=== PATIENT | male | born 1995 | race Caucasian/White ===

== ENCOUNTER 2022-06-14 14:53 | Emergency (ER) | payer BC, SELFPAY ==
[2022-06-14 15:02] VITALS: BP 152/82; PULSE 65; RESP 16; TEMP 36.8; O2SAT 100
--- NOTE | 2022-06-14 15:06 | ED.EAR ---
HPI - Ear Problem General Chief complaint: Ear Stated complaint: ear pain Time Seen by Provider: 06/14/22 15:07 Source: patient Mode of arrival: ambulatory Limitations: no limitations History of Present Illness HPI Narrative: 26 y/o male presented for c/o right ear discomfort worsening over the last 3 days. States he had nasal congestion prior to these symptoms. He could hear fluid in the ear. Now the right ear feels clogged, with decreased hearing. Reports occasional sharp pain to the inner ear. Denies ear drainage, swelling, tinnitus, dizziness, n/v/f/c. Using multi-purpose ear drops without change. MD Complaint: ear pain Related Data Allergies Allergy/AdvReac Type Severity Reaction Status Date / Time No Known Allergies Allergy Verified 06/14/22 15:04 Review of Systems Review of Systems: CONSTITUTIONAL: Denies malaise, chills, or fever. EYES: Denies visual changes, redness, or discharge. ENT: Denies rhinorrhea, congestion, sinus pain, and sore throat. Reports ear pain CARDIOVASCULAR: Denies chest pain, palpitations, or edema. RESPIRATORY: Denies cough or dyspnea. GASTROINTESTINAL: Denies abdominal pain, nausea, vomiting, diarrhea SKIN: Denies rash or itching. MUSCULOSKELETAL: Denies myalgia. NEUROLOGIC: Denies headache. All systems reviewed & are unremarkable except as noted in HPI and below PMFSH Past Medical History Medical History (Updated 06/14/22 @ 15:28 by Babita Valles, KERLINE) No pertinent past medical history Comments At time of signature, agree with nursing past medical, surgical, social and family history. There is no relevant family history pertinent to the presenting complaint Exam Narrative: GENERAL: Well-appearing, in no acute distress. HEAD: Normocephalic EYES: PERRLA, conjunctivae clear ENT: Nares clear. Mucous membranes moist. Left TM pearly valdes with dull light reflex; Right TM with excess soft cerumen, unable to visualize TM. no tragal tenderness. Oropharynx not erythematous without lesions. Tonsils not enlarged and without exudate, no drooling, no hoarseness, no trismus, uvula midline. NECK: Supple. No lymphadenopathy CHEST: Clear to auscultation, breath sounds equal. HEART: Regular rate and rhythm. No murmur heard. SKIN: Warm, dry, no rash. NEURO: Alert and oriented x3. PSYCH: Normal mood and affect Course Course Emergency Course: Patient is aware of diagnosis, understands and agrees to treatment plan. Anticipatory guidance given. Patient agrees to follow-up as directed and is aware of reasons to seek care at the emergency department. Portions of this record may have been created with voice recognition software Level of Care: Express Care Visit Vital Signs Vital signs: Vital Signs Temperature 98.2 F 06/14/22 15:02 Pulse Rate 65 06/14/22 15:02 Respiratory Rate 16 06/14/22 15:02 Blood Pressure 152/82 H 06/14/22 15:02 Pulse Oximetry 100 06/14/22 15:02 Oxygen Delivery Room Air 06/14/22 15:02 Temperature 98.2 F 06/14/22 15:02 Pulse Rate 65 06/14/22 15:02 Respiratory Rate 16 06/14/22 15:02 Blood Pressure 152/82 H 06/14/22 15:02 Pulse Oximetry 100 06/14/22 15:02 Oxygen Delivery Room Air 06/14/22 15:02 Reviewed Procedures Ear Wax Removal Right Ear: Ear Wax Removal Date: 06/14/22 Results: Re-examined: some cerumen remains TM Examination: TM(s) erythematous (c/w otits media) Ear Canal Exam: atraumatic Patient Tolerated Procedure: well and no complications Technique: ear canal curetted Additional Comments: Small amount cerumen remains in canal. Pt reports pain with reattempts. Medical Decision Making MDM Narrative Medical decision making narrative: Excess cerumen removed, appears to have right AOM. Discussed findings with pt. Advised continue ear wax drops and start abx. Advised supportive measures and signs/symptoms to go to the ER. Patient is appropriate for outpatient treatment and follow-
== END 2022-06-14 15:30 | disposition home or self-care (01) ==
PROVIDERS: Emergency Provider Nurse Practitioner Family
DX: H66.001 Acute suppurative otitis media without spontaneous rupture of ear drum, right ear (principal); H61.21 Impacted cerumen, right ear
CPT/HCPCS: 69210; 99213; G0463

== ENCOUNTER 2024-12-22 10:26 | Emergency (ER) | payer BC, SELFPAY ==
[2024-12-22 10:42] VITALS: BP 141/89; PULSE 74; RESP 16; TEMP 36.6; O2SAT 98
--- NOTE | 2024-12-22 11:04 | ED_ITS ---
HPI - Dental/Oral General Chief complaint: Upper Respiratory Infection Stated complaint: Left Side Facial Swelling/Vomiting Source: patient, RN notes reviewed and old records reviewed Mode of arrival: ambulatory Limitations: no limitations History of Present Illness HPI Narrative: 29-year-old male presents to [facility] with 2 day history of sinus drainage and cough with complaints of nausea, vomiting and facial swelling which started this morning and he has felt feverish today. Patient reports that he has bad teeth but he is really not having any pain to the upper gums presently. Patient has noted red raised irritation on the left side of his upper gums with broken and obvious caries noted to multiple teeth on top. Patient has palpable swelling to the left side of his face. Patient reports that he has no problems with his swallowing or with his breathing. Patient reports that he has taken Tylenol and DayQuil and did use some Orajel yesterday. MD Complaint: tooth pain (facial swelling, dental problems, sinus drainage, nausea and vomiting) Onset (ago): day(s) (2) Severity: moderate Treatment prior to arrival: other (DayQuil, Tylenol and did use Orajel yesterday.) Related Data Allergies Allergy/AdvReac Type Severity Reaction Status Date / Time No Known Allergies Allergy Verified 12/22/24 10:50 Review of Systems Review of Systems: CONSTITUTIONAL: Denies fever, chills, or sweats. ENT: Reports rhinorrhea, congestion,no sore throat, or otalgia. Reports no acute dental pain but admits to history of dental problems, has swelling to the left side of face and to side of left nasal area. Patient has history of previous dental abscess with broken teeth and obvious caries especially to left side of upper gums. CARDIOVASCULAR: Denies chest pain, palpitations, or edema. RESPIRATORY: Reports some cough denies any dyspnea. SKIN: Denies rash or itching. MUSCULOSKELETAL: Denies myalgia. NEUROLOGIC: Denies headache All systems reviewed & are unremarkable except as noted in HPI and below PMFSH Past Medical History Medical History Acquired clubfoot, unspecified foot surgical repair Poor dentition Abscess, dental Social History Social History (Updated 12/22/24 @ 11:34 by Emma Montero APRN) Smoking status: Never smoker Alcohol intake: current Alcohol use details: social Substance use type: does not use Living arrangements: with family Gender identity (if verbalized by the patient): Male Comments At time of signature, agree with nursing past medical, surgical, social and family history. There is no relevant family history pertinent to the presenting complaint Exam Narrative: GENERAL: Well-appearing, well-nourished, and in no acute distress. HEAD: Normocephalic, atraumatic. EYES: PERRLA and EOMI. ENT: Nares clear, light yellow rhinorrhea no epistaxis. Mucous membranes moist. Missing teeth, broken teeth, caries redness and swelling along gums of left side of mouth with left sided facial swelling and along left nares, no Brendon angina noted,no jaw swelling or any trismus NECK: Supple. no lymphadenopathy CHEST: Clear to auscultation. No respiratory distress. SAO2 98% on room air, occasional cough noted HEART: Regular rate and rhythm. No murmur heard. Normal peripheral pulses. SKIN: Warm, dry, no rash. NEURO: No focal deficits. Alert and oriented x3. Course Course Emergency Course: Patient is aware of diagnosis, understands and agrees to treatment plan. Anticipatory guidance given. Patient agrees to follow-up as directed and is aware of reasons to seek care at the emergency department. Portions of this record may have been created with voice recognition software Level of Care: Express Care Visit Vital Signs Vital signs: Vital Signs Temperature 36.6 C 12/22/24 10:42 Pulse Rate 74 12/22/24 10:42 Respiratory Rate 16 12/22/24 10:42 Blood Pressure 141/89 H 12/22/24 10:42 Pulse Oximetry 98 12/22/24 10:42 Oxygen Delivery Room Air 12/22/24 10:42 Temperature 36.6 C 12/22/24 10:42 Pulse Rate 74 12/22/24 10:42 Respiratory Rate 16 12/22/24 10:42 Blood Pressure 141/89 H 12/22/24 10:42 Pulse Oximetry 98 12/22/24 10:42 Oxygen Delivery Room Air 12/22/24 10:42 Reviewed MDM - Dental/Oral MDM Narrative Medical decision making narrative: Patients pain and complaint coupled with physical findings are consistent with dentalgia. There are no focal signs of space occupying lesions that are compromising to the airway; no dysphagia, odynophagia, dysphonia, or dyspnea. No uvular deviation or soft palate edema. Patient is non-toxic appearing. The floor of the mouth is soft with no signs of Brendon's Angina; no induration below mandible, no neck pain.? Patient is without trismus or drooling and able to swallow secretions.? Patient is felt appropriate for discharge home with dental follow up. Differential Diagnosis Differential diagnosis: Likely dental caries, dental abscess and other (facial swelling, URI, nausea with vomiting) Medical Records Attestation: I reviewed the patient's medical records. Critical Care Time Critical Care Time Critical Care Time: No Discharge Plan Discharge Clinical Impression: Abscess, dental, Swelling of left side of face, Sinus congestion Patient Disposition: Home Condition: Stable Instructions: Antibiotic Form, Dental Abscess (ED) Additional Instructions: Avoid temperature extremes May apply heat or ice to the face Gentle brushing and flossing Antibiotic as directed Tylenol for lesser pain Use ibuprofen regularly recommend Ibuprofen 600 mg orally every 6 hours as needed for pain Follow-up with the dentist as soon as possible--see the list provided Zyrtec, Claritin or Maddison for any sinus congestion or drainage. If your symptoms persist, change or worsen significantly before you can contact your personal physician then please, without delay, go to the emergency department for further evaluation. Follow-up with PCP in 7-10 days or sooner if needed Follow up with PCP soon in regards to your blood pressure which is elevated above threshold for referral. Blood pressure above 120/80 may indicate pre- hypertension.141/89 Patient Language: Cuban Prescriptions: New amoxicillin-pot clavulanate 875-125 mg tablet 1 tablet PO Q12H Qty: 20 0RF ondansetron 4 mg tablet,disintegrating 4 mg PO Q6H PRN (Reason: nausea and vomiting) Qty: 20 0RF Rx Instructions: what ever preparation is covered with insurance Follow-up/Referrals: Odette,IZA Lenz [Primary Care Provider] Time of Disposition: 11:10 Quality Luci Coma Scale Eyes: Open Verbal: Oriented and Alert Motor: Follows Commands [place] Coma Total Score: 15
== END 2024-12-22 11:20 | disposition home or self-care (01) ==
PROVIDERS: Emergency Provider Registered Nurse; PCP Registered Nurse
DX: K04.7 Periapical abscess without sinus (principal); J34.89 Other specified disorders of nose and nasal sinuses
CPT/HCPCS: 99213; G0463